=== PATIENT | female | born 1965 ===

== ENCOUNTER 2017-08-24 10:27 | Outpatient (CLI) | payer OTHER ==
--- NOTE | 2017-08-24 14:52 | CT ---
CT ABDOMEN WITH AND WITHOUT IV CONTRAST: CT PELVIS WITH AND WITHOUT IV CONTRAST: HISTORY: Liver mass. Epigastric pain. FINDINGS: The lung bases are clear. There is a 3.5 cm mass at the anterior aspect of the left lobe of the live r with peripheral nodular enhancement and centripetal filling, consistent with a hemangioma. The pat ient is post cholecystectomy. The spleen, pancreas, and adrenal glands are normal. There is an 8 mm low density lesion in the right renal cortex and a 10 mm low density lesion in the left renal cortex . No renal calculi or hydronephrosis is seen. No free air, free fluid, or lymphadenopathy is identi fied in the abdomen or pelvis. The small bowel loops are not abnormally dilated. There is fecal mat erial in the colon. There is no evidence of abdominal aortic aneurysm or dissection. There are mild degenerative changes in the spine. IMPRESSION: 1. A 3.5 cm left liver lobe hemangioma. 2. Small, low density lesions in the kidneys, likely cysts. Correlation with renal ultrasound is re commended. POS: JAYESH
== END 2017-08-24 10:28 | disposition home or self-care (01) ==
LOC: SCSCT 10:27
PROVIDERS: ATTEND Family Medicine
DX: D18.03 Hemangioma of intra-abdominal structures (principal); N28.9 Disorder of kidney and ureter, unspecified
CPT/HCPCS: 74178